=== PATIENT | male | born 1965 | race Caucasian/White ===

== ENCOUNTER 2020-06-13 19:13 | Emergency (ER) | payer OTHER, SELFPAY ==
[2020-06-13 19:20] VITALS: BP 166/90; PULSE 45; RESP 16; TEMP 36.7; O2SAT 100
--- NOTE | 2020-06-13 19:23 | ED.BACK ---
HPI - Back Pain/Injury General Chief Complaint: Back Pain/Injury Stated Complaint: back and leg pain Time Seen by Provider: 06/13/20 19:23 Source: patient Mode of arrival: ambulatory Limitations: no limitations History of Present Illness HPI Narrative: patient was mowing lawn and thinks he pulled a muscle in his back. Patient has low back pain no radiation no numbness or tingling no saddle anesthesia no bowel or bladder problems. patient has not taken his blood pressure medidcation today and has not taken anything for pain or discomfort. MD elicited complaint: back pain Onset (ago): day(s) Severity: mild Quality: sharp Location: lumbar spine Radiation: none Related Data Home Medications Medication Instructions Recorded Confirmed nebivolol [Bystolic] mg 06/13/20 Allergies Allergy/AdvReac Type Severity Reaction Status Date / Time No Known Allergies Allergy Unverified 07/01/18 14:22 Review of Systems Review of Systems: Narrative: CONSTITUTIONAL: Denies fever, chills, or sweats. EYES: Denies visual changes, redness, or discharge. ENT: Denies rhinorrhea, congestion, sore throat, or otalgia. CARDIOVASCULAR: Denies chest pain, palpitations, or edema. RESPIRATORY: Denies cough or dyspnea. GASTROINTESTINAL: Denies abdominal pain, nausea, vomiting, or diarrhea. GENITOURINARY: Denies dysuria or hematuria. SKIN: Denies rash or itching. MUSCULOSKELETAL: Denies back pain, joint pain, or myalgia. NEUROLOGIC: Denies headache, numbness, or weakness. PSYCHIATRIC: Denies anxiety or depression. PMFSH Comments At time of signature, agree with nursing past medical, surgical, social and family history. There is no relevant family history pertinent to the presenting complaint Exam Narrative: Exam Narrative: GENERAL: Well-appearing, well-nourished, and in no acute distress. HEAD: Normocephalic, atraumatic. EYES: PERRLA and EOMI. ENT: Nares clear, no rhinorrhea or epistaxis. Mucous membranes moist. NECK: Supple. CHEST: Clear to auscultation. No respiratory distress. HEART: Regular rate and rhythm. No murmur heard. Normal peripheral pulses. ABDOMEN: Soft, nontender, nondistended, normal active bowel sounds. EXTREMITIES: Normal range of motion. No edema. SPINE MIDLINE. NO CURVATURE APPARENT. NO VERTEBRAL POINT SPECIFIC TENDERNESS. NO DEFORMITY. NO STEP-OFFS. NORMAL LE STRENGTH BILATERALLY. NORMAL LE SENSATION BILATERALLY. ABLE TO WALK ON TOES AND HEELS WITH NORMAL DORSIFLEXION AND PLANTAR FLEXION STRENGTH. NO WEAKNESS OBSERVED WITH GAIT. LEFT PARASPINAL MUSCLE TENDERNESS FLEXION STRENGTH. NO WEAKNESS OBSERVED WITH GAIT. LEFT PARASPINAL MUSCLE TENDERNESS. LEFT SI JOINT TENDERNESS. FLEXION AND EXTENSION ROM NORMAL, ONLY SLIGHT LIMITATION. SKIN: Warm, dry, no rash. NEURO: No focal deficits. Alert and oriented x3. [place] Coma Scale Eye Opening: Spontaneous 4 [place] Coma Scale Motor: Obeys Commands 6 [place] Coma Scale Verbal: Oriented 5 [place] Coma Scale Total 15 Course Vital Signs Vital signs: Vital Signs Temperature 36.7 C 06/13/20 19:20 Pulse Rate 45 L 06/13/20 19:20 Respiratory Rate 16 06/13/20 19:20 Blood Pressure 166/90 H 06/13/20 19:20 Pulse Oximetry 100 06/13/20 19:20 Temperature 36.7 C 06/13/20 19:20 Pulse Rate 45 L 06/13/20 19:20 Respiratory Rate 16 06/13/20 19:20 Blood Pressure 166/90 H 06/13/20 19:20 Pulse Oximetry 100 06/13/20 19:20 Please SONAL schedule a followup visit with your personal physician for further evaluation and treatment. Including recheck and discussion of your blood pressure. If your symptoms persist, change or worsen significantly before you can contact your personal physician then please, without delay, go to the emergency department for further evaluation Discussed with patient hypertension. Today's blood pressure higher than recommended range. Discussed importance of follow -up with PCP and CV events related to HTN. Currently patient denies headache, vision
== END 2020-06-13 19:40 | disposition home or self-care (01) ==
PROVIDERS: Emergency Provider Nurse Practitioner Family; PCP Internal Medicine
DX: S39.012A Strain of muscle, fascia and tendon of lower back, initial encounter (principal); X58.XXXA Exposure to other specified factors, initial encounter; Y93.H9 Activity, other involving exterior property and land maintenance, building and construction; I10 Essential (primary) hypertension
CPT/HCPCS: 99213; G0463

== ENCOUNTER 2022-01-10 12:13 | Outpatient (CLI) | payer OTHER, SELFPAY ==
--- NOTE | ~2022-01-10 | XR_ITS ---
XR shoulder LT min 2V 01/10/2022 12:34 Indication: Left shoulder pain. Procedure: 4 views left shoulder Comparison: No prior studies for comparison. Findings: Normal mineralization. There are mild degenerative changes of the shoulder. There is a circ umscribed lytic lesion of the humeral head likely benign. No soft tissue abnormality. No foreign bodi es. No acute fracture or traumatic malalignment. Impression: 1: Mild polyarticular osteoarthritis. Reviewed, dictated and finalized at location A. 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
== END 2022-01-10 12:14 | disposition home or self-care (01) ==
LOC: ANHBWCIMG 12:15
PROVIDERS: PCP Internal Medicine; Referring Provider Orthopaedic Surgery; Visit Provider Orthopaedic Surgery
DX: M19.012 Primary osteoarthritis, left shoulder (principal)
CPT/HCPCS: 73030